=== PATIENT | male | born 1950 | race Caucasian/White ===

== ENCOUNTER 2019-04-23 08:27 | Day surgery (SDC) | payer MEDICARE, OTHER ==
[~2019-04-23 08:27] MED LIST: Acetaminophen TAB* 325 MG PO PRN; Buffered Lidocaine 1% SYRIN* 1 ML/SYRINGE INTRADERM ONE
[2019-04-23] MEDS ORDERED: fentaNYL* 50 MCG/ML 2 ML VIAL (100 MCG VIAL) ONE (10:34)
[2019-04-23] MEDS ORDERED: Midazolam* 1 MG/ML 2 ML VIAL (2 MG) ONE (10:34)
[2019-04-23 11:57] VITALS: BP 108/60
--- NOTE | 2019-04-23 12:53 | OP ---
DATE OF OPERATION: 04/23/19 [facility] DATE OF : 48 SURGEON: Dr. Otoniel Millard. MANAGER CT: None. ANESTHESIA: Topical with intravenous sedations. PRE-OP DIAGNOSIS: Cataract with astigmatism, left eye. POST-OP DIAGNOSIS: Cataract with astigmatism, left eye. OPERATIVE PROCEDURE: Phacoemulsification and cataract extraction with posterior chamber intraocular lens implant, left eye. COMPLICATIONS: None. BLOOD LOSS: None. DESCRIPTION OF PROCEDURE: The patient was brought to the operating room and given intravenous sedation. A drop of tetracaine was given to the patient's left eye. The patient was prepped and draped in the usual sterile fashion for ophthalmic surgery. Attention was again directed to the left eye, where a speculum was placed. A paracentesis was created at the 5 o'clock position and 0.1 cc of 1% perseverative-free lidocaine was injected into the anterior chamber followed by DisCoVisc. It was noted that the pupil did not dilate well , so Omidria was added to the irrigating solution. The eye was digitally stabilized while a 2.75 mm keratome was used to create a triplanar clear corneal incision at the 3 o'clock position. A continuous curvilinear capsulorrhexis was created with the cystotome and Utrata forceps. BSS on a cannula was used to hydrodissect the lens from the capsule. Phacoemulsification was performed in a [id number] technique to create 4 fragments, which were removed. Residual cortical material was removed with irrigation and aspiration. The capsular bag was polished. The eye was inflated with Provisc. Intraocular pressure was checked with a tonometer. The surface of the eye was lubricated. The ORA device was employed to guide the lens choice. An [id number], 21 diopter lens was folded and inserted into the capsular bag. The reticle on the ORA helped align the lens to the 88 degree axis. The lens was stabilized in the capsular bag with a Sinskey hook through the paracentesis and irrigation aspiration was performed to remove viscoelastic from the eye. The Sinskey hook was removed. BSS on a cannula was used to hydrate the corneal stroma and seal the wound. At the end of the case, the pupil was round. The lens was centered and axial aligned. The eye pressure appeared normal and the wound was watertight. The speculum was removed and topical Maxitrol ointment was placed on the surface of the eye. The eye was closed, patched and shielded, and the patient was sent to the recovery room in stable condition with postoperative instructions and followup appointment given. [id number]/CPS #: [id number] MTDD
[2019-04-23] MEDS ORDERED: Lidocaine 1% MPF ** 5 ML VIAL ONE (15:35)
[2019-04-23] MEDS ORDERED: Tropicamide 1% OPTH.SOL* BTL ONE (15:35)
[2019-04-23] MEDS ORDERED: Cyclopentolate 1% OPTH.SOL* 2 ML BTL ONE (15:35)
[2019-04-23] MEDS ORDERED: Tetracaine 0.5% OPTH.SOL 4 ML* 1 DROP BTL ONE (15:35)
[2019-04-23] MEDS ORDERED: Phenylephrine OPHTH SOL 2.5%* 2 ML ONE (15:35)
[2019-04-23] MEDS ORDERED: Neomycin/Polymy/Dex OPHTH.OIN* 3.5 GM ONE (15:35)
[2019-04-23] MEDS ORDERED: Phenylephr/Ketorolac 1%/0.3% OPH DROP BTL ONE (15:35)
[2019-04-23] MEDS ORDERED: Ketorolac 0.5% OPHTH (NF) 0.5 % 5 ML BTL ONE (15:35)
== END 2019-04-23 12:07 | disposition home or self-care (01) ==
LOC: OREAST 08:27
PROVIDERS: ATTEND Ophthalmology
DX: H25.12 Age-related nuclear cataract, left eye (principal); H52.202 Unspecified astigmatism, left eye; I10 Essential (primary) hypertension; F17.210 Nicotine dependence, cigarettes, uncomplicated; E78.5 Hyperlipidemia, unspecified; Z87.820 Personal history of traumatic brain injury; Z90.5 Acquired absence of kidney
CPT/HCPCS: A9270-GY; C9447; J2250; J3010; V2787

== ENCOUNTER 2019-04-30 09:30 | Day surgery (SDC) | payer MEDICARE, OTHER ==
[2019-04-30] MEDS ORDERED: fentaNYL* 50 MCG/ML 2 ML VIAL (100 MCG VIAL) ONE (10:58)
[2019-04-30] MEDS ORDERED: Midazolam* 1 MG/ML 2 ML VIAL (2 MG) ONE (10:58)
[2019-04-30] MEDS ORDERED: Neomycin/Polymy/Dex OPHTH.OIN* 3.5 GM ONE (12:11)
[2019-04-30] MEDS ORDERED: Tetracaine 0.5% OPTH.SOL 4 ML* 1 DROP BTL ONE (12:11)
[2019-04-30] MEDS ORDERED: Ketorolac 0.5% OPHTH (NF) 0.5 % 5 ML BTL ONE (12:11)
[2019-04-30] MEDS ORDERED: Tropicamide 1% OPTH.SOL* BTL ONE (12:11)
[2019-04-30] MEDS ORDERED: Phenylephrine OPHTH SOL 2.5%* 2 ML ONE (12:11)
[2019-04-30] MEDS ORDERED: Cyclopentolate 1% OPTH.SOL* 2 ML BTL ONE (12:11)
[2019-04-30] MEDS ORDERED: Lidocaine 1% MPF ** 5 ML VIAL ONE (12:11)
--- NOTE | 2019-04-30 12:26 | OP ---
DATE OF OPERATION: 04/30/19 [facility] DATE OF : 48 SURGEON: Dr. Otoniel Millard. COMB FIXER: None. ANESTHESIA: Topical with intravenous sedation. PRE-OP DIAGNOSIS: Cataract, right eye. POST-OP DIAGNOSIS: Cataract, right eye. OPERATIVE PROCEDURE: Phacoemulsification and cataract extraction with posterior chamber intraocular lens implant, right eye. COMPLICATIONS: None. BLOOD LOSS: None. DESCRIPTION OF PROCEDURE: The patient was brought to the operating room and received a small amount of intravenous sedation. A drop of Tetracaine was placed in his right eye. He was prepped and draped in the usual sterile fashion for ophthalmic surgery and attention was directed to the right eye where a speculum was placed. A paracentesis was created at the 11 o'clock position and 0.1 cc of 1 percent preservative-free Lidocaine was injected into the anterior chamber followed by DisCoVisc. The eye was digitally stabilized while a 2.75 mm keratome was used to create a triplanar clear corneal incision at the 9 o'clock position. A continuous curvilinear capsulorrhexis was created with a cystotome and Utrata forceps. BSS on a cannula was used to hydrodissect the lens from the capsule. Phacoemulsification was performed in a divide-and- conquer technique to create four fragments which were removed. Residual cortical material was removed with irrigation and aspiration. DisCoVisc was used to inflate the capsular bag and an AU00T0 21.5 diopter lens was folded and inserted into the capsular bag. DisCoVisc was removed using irrigation and aspiration. BSS on a cannula was used to hydrate the corneal stroma and seal the wound. At the end of the case the pupil was round and the lens was centered. The eye was of normal pressure and the wound was water tight. The speculum was removed and topical Maxitrol ointment was placed on the surface of the eye. The eye was closed, patched and shielded and the patient was sent to the recovery room in stable condition with post operative instructions and follow-up appointment given. [id number] #: [id number]
[2019-04-30 13:13] VITALS: BP 114/73
[2019-04-30] MEDS ORDERED: Phenylephr/Ketorolac 1%/0.3% OPH DROP BTL ONE (15:09)
== END 2019-04-30 12:54 | disposition home or self-care (01) ==
LOC: OREAST 09:30
PROVIDERS: ATTEND Ophthalmology
DX: H25.11 Age-related nuclear cataract, right eye (principal); G83.89 Other specified paralytic syndromes; Z87.820 Personal history of traumatic brain injury
CPT/HCPCS: A9270-GY; C9447; J2250; J3010; V2632